=== PATIENT | female | born 1990 | race Caucasian/White ===

== ENCOUNTER → 2017-08-10 | Outpatient (CLI) | payer OTHER | LOC: HPND 07:53 | PROVIDERS: ATTEND Obstetrics & Gynecology | DX: O35.8XX0 Maternal care for other (suspected) fetal abnormality and damage, not applicable or unspecified (principal); Z3A.31 31 weeks gestation of pregnancy | CPT/HCPCS: 76811 ==

== ENCOUNTER 2017-12-23 03:27 | Emergency (ER) | payer OTHER, MEDICAID ==
[~2017-12-23] VITALS: Ht 170.2 cm; Wt 94.3 kg
[2017-12-23 03:32] VITALS: BP 103/70; PULSE 129; RESP 12; TEMP 99.4; O2SAT 95
[2017-12-23 03:53] VITALS: BP 103/70; PULSE 129; RESP 16; TEMP 99.4; O2SAT 95
[2017-12-23 04:00] VITALS: BP 106/68; PULSE 110; RESP 16; O2SAT 97
[2017-12-23] MEDS ORDERED: FLUO20CA12 PO (04:06)
[2017-12-23] MEDS ORDERED: SYNT25TA PO (04:06)
[2017-12-23] MEDS ORDERED: AMIT25TA9 PO (04:06)
[2017-12-23] MEDS ORDERED: LORA-400 PO (04:06)
[2017-12-23] MEDS ORDERED: SE-NCHW CHEW (04:06)
[2017-12-23] MEDS ORDERED: KETOROLAC TROMETHAMINE 30 MG/ML (IVP) VIAL IV PUSH ONE (04:30)
[2017-12-23] MEDS ORDERED: SODIUM CHLOR 0.9% 1000 ML INJ 1,000 ML IV ONE ×2 (04:30→06:00)
[2017-12-23] MEDS ORDERED: ONDANSETRON HCL 4 MG/2 ML VIAL IV PUSH ONE ×2 (04:30→06:00)
[2017-12-23 05:04] LABS: BILIRUBIN, URINE NEG (NEG); BLOOD, URINE NEG (NEG); GLUCOSE,URINE NEG (NEG); KETONE, URINE NEG (NEG); NITRITE,URINE NEG (NEG); URINE LEUKOCYTE ESTERASE SMALL (NEG)
[2017-12-23 05:06] VITALS: BP 105/68; PULSE 108; RESP 16; O2SAT 97
[2017-12-23 05:13] LABS: BICARBONATE 24.5 MEQ/L (21.0-32.0)
[2017-12-23 05:16] LABS: AUTOMATED NEUTROPHIL # 9.5 TH/MM3 (1.8-7.7); BASOPHIL % 0.1 % (0.0-2.0); EOSINOPHIL # 0.2 TH/MM3 (0-0.4); EOSINOPHIL % 1.6 % (0.0-4.0); HEMATOCRIT 41.7 % (35.0-46.0); HEMOGLOBIN 13.7 GM/DL (11.6-15.3); LYMPH % 4.2 % (9.0-44.0); LYMPHOCYTE # 0.4 TH/MM3 (1.0-4.8); MEAN CELL VOLUME 87.9 FL (80.0-100.0); MEAN CORPUSCULAR HEMOGLOBIN 28.9 PG (27.0-34.0); MEAN CORPUSCULAR HGB CONC 32.8 % (32.0-36.0); MEAN PLATELET VOLUME 8.5 FL (7.0-11.0); MONO % 4.9 % (0.0-8.0); MONOCYTE # 0.5 TH/MM3 (0-0.9); NEUT % 89.2 % (16.0-70.0); PLATELET COUNT 280 TH/MM3 (150-450); RED BLOOD COUNT 4.74 MIL/MM3 (4.00-5.30); RED CELL DISTRIBUTION WIDTH 14.2 % (11.6-17.2); WHITE BLOOD COUNT 10.6 TH/MM3 (4.0-11.0)
[2017-12-23 05:17] LABS: CREATININE 0.7 MG/DL (0.50-1.00)
[2017-12-23 05:20] LABS: URINE COLOR YELLOW (YELLW/STRAW)
[2017-12-23 05:21] LABS: MUCUS URINE MOD /lpf (OCC); SQUAMOUS EPITHELIAL CELL URINE 0-5 /hpf (0-5)
[2017-12-23 05:23] LABS: AMORPHOUS SEDIMENT, URINE SMALL; BACTERIA, URINE OCC /hpf
[2017-12-23 06:02] VITALS: BP 102/58; PULSE 101; RESP 16; O2SAT 98
[2017-12-23] MEDS ORDERED: ZOFR4TAB3 SL (06:23)
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
[2017-12-23 06:33] VITALS: BP 103/62
== END 2017-12-23 06:47 | disposition home or self-care (01) ==
LOC: PHED 03:27
DX: G43.009 Migraine without aura, not intractable, without status migrainosus (principal); R11.2 Nausea with vomiting, unspecified; J02.9 Acute pharyngitis, unspecified; E03.9 Hypothyroidism, unspecified
CPT/HCPCS: 80048; 81001; 84703; 85025; 87081; 87880; 96361; 96374; 96375; 96376; 99284; J1885; J2405; J7030